=== PATIENT | female | born 1955 | race Caucasian/White ===

== ENCOUNTER 2017-07-06 10:01 | Day surgery (SDC) | payer BC ==
[~2017-07-06 10:01] MED LIST: PROPOFOL 500 MG/50 ML EMU IV ONE
[2017-07-06 11:45] VITALS: BP 120/58; PULSE 47; RESP 18; TEMP 97.4; O2SAT 100
== END 2017-07-06 12:06 | disposition home or self-care (01) ==
LOC: SURG 10:01
PROVIDERS: ATTEND Surgery
DX: Z12.11 Encounter for screening for malignant neoplasm of colon (principal); Z80.0 Family history of malignant neoplasm of digestive organs
CPT/HCPCS: 45378; J2704; J2001